=== PATIENT | male | born 1965 | race Caucasian/White ===

== ENCOUNTER 2021-06-02 12:30 | Inpatient (IN) | payer OTHER ==
[~2021-06-02] VITALS: Ht 185.4 cm; Wt 165.1 kg
[2021-06-02 12:50] VITALS: BP 106/76
[2021-06-02 13:10] LABS: BE(vivo) -0.4 mmol/L (-2 to +3); HCO3 23.1 mmol/L (22.0-26.0); PCO2 34.7 mmHg (35.0-45.0); PO2 77.4 mmHg (80.0-100.0); pH 7.441 (7.360-7.450)
[2021-06-02] MEDS ORDERED: NOHOMEMEDICATIONS (13:27)
[2021-06-02 13:47] LABS: ABSOLUTE NEUTROPHILS 3.8 thou/uL (1.4-8.2); BASOPHILS 0.5 % (0.0-2.0); HEMATOCRIT 43.5 % (42.0-52.0); HEMOGLOBIN 14.7 gm/dL (14.0-18.0); LYMPHOCYTES 23.5 % (24.0-44.0); MCH 31.9 pg (26.0-34.0); MCHC 33.8 g/dL (28.0-37.0); MCV 94.3 fL (80.0-100.0); MONOCYTES 4.9 % (1.0-8.0); PLATELET COUNT 174 thou/uL (150-400); POLYS 71.1 % (36.0-66.0); RBC 4.62 mil/uL (4.50-6.00); RDW 13.6 % (10.5-14.5); WBC 5.3 thou/uL (4.0-11.0)
[2021-06-02 14:10] LABS: CALCIUM 7.9 mg/dL (8.5-10.1); CREATININE 1.1 mg/dL (0.7-1.3); POTASSIUM 4.3 mmol/L (3.5-5.1)
[2021-06-02 14:13] LABS: APTT 33.3 Seconds (24.5-32.8); D-DIMER 1.14 ug/mLFEU (0.19-0.50); INR 0.97; PROTIME 10.6 Seconds (10.5-12.1)
[2021-06-02 14:14] LABS: ALBUMIN 2.9 g/dL (3.4-5.0); TOTAL BILIRUBIN 0.3 mg/dL (0.2-1.0); TOTAL PROTEIN 7.4 g/dL (6.4-8.2)
[2021-06-02 15:30] VITALS: BP 137/83
[2021-06-02 15:58] LABS: URINE BILIRUBIN NEGATIVE (Negative); URINE BLOOD TRACE (Negative); URINE CLARITY CLEAR; URINE COLOR YELLOW; URINE GLUCOSE-RANDOM* NEGATIVE (Negative); URINE KETONES TRACE (Negative); URINE LEUKOCYTES-REFLEX NEGATIVE (Negative); URINE NITRITE-REFLEX NEGATIVE (Negative); URINE PROTEIN (DIPSTICK) 2+ (Negative); URINE UROBILINOGEN 0.2 E.U./dl (0.2-1.0)
[2021-06-02 16:15] LABS: SQUAMOUS 0-3 Few /LPF (0-3); URINE RBC 1-2 Rare /HPF (NONE SEEN); URINE WBC-REFLEX 0-5 Rare /HPF (0-5)
[2021-06-02 16:16] LABS: BACTERIA-REFLEX 1-9 Few /HPF (None Seen)
[2021-06-02 17:19] VITALS: BP 114/66
--- NOTE | 2021-06-02 19:55 | NUR ---
Pt received from ED via wheelchair on NC and mask, pt placed on mask at 15L - POX 97%. On 9L NC 94%. RT called to evaluate and administer appropriate level of O2. Pt SOB at rest, particularly when speaking. WILDE. Pt instructed on safety measures, use of call light for assistance, instructed not to get OOB without assistance for fall precautions - pt verbalized understanding. Other VSS, pt afebrile - see flow sheet for documentation. Tele monitor placed on pt - HR NSR 80's. Pt denies CP, palpitations this time. Admission assessment completed with patient providing informtation. Pt appears stable at this time, resting in bed, eating sandwiched. Call light and personal belongings in reach.
[2021-06-02 21:08] LABS: ALBUMIN 3.2 g/dL (3.4-5.0)
[2021-06-02 21:30] VITALS: BP 140/93
--- NOTE | 2021-06-02 22:22 | NUR ---
PT ALERT AND ORIENTED X4. VSS AFEBRILE. TACHYPNEIC ON FM. SAT 92%. LUNGS SOUND DIMINISHED. INSTRUCTED PT ON FALL PRECAUTIONS. REISTRUCTED PROMOTIONAL ADVERTISING ASSISTANT LIGHT , URINAL AT BS. WALKER IN RM SINCE HE USES A CANE AT HOME PRN. BED DOWN CALL LIGHT IN REACH. BED ALARM IS ON. CARE PLAN INITIATED. NO SKIN BREAKDOWN NOTED. ABX STARTED ORDERED.
[2021-06-02 23:23] VITALS: BP 135/83
--- NOTE | 2021-06-03 00:28 | NUR ---
PT ASSESSMENT COMPLETED FOR MN. RR 26-28. SAT WAS 87-88% ON 40% FM. NOTIFIED RT. NOTIFIED DEWER A BÁRBARA. BIPAP PLACED ORDERED. WILL HAVE RT GET ABGS ORDERED. CLARIFIED WITH DEWER PULMONARY CONSULT TO BE CALLED IN AM. PT IS NOW SATTING 96% ON BIPAP. PT STATES HE FEELS LIKE HE IS BREATHING BETTER AND EASIER NOW. IV ABX INFUSING AND VIT C IV. MRSA AND URINE SAMPLE SENT TO LAB REQUESTED BT DR KIRK.
[2021-06-03 03:06] VITALS: BP 92/64
[2021-06-03 04:34] LABS: BE(vivo) 0.9 mmol/L (-2 to +3); HCO3 25.5 mmol/L (22.0-26.0); PCO2 40.5 mmHg (35.0-45.0); PO2 76.8 mmHg (80.0-100.0); pH 7.417 (7.360-7.450); sO2 95.6 % (92.0-98.0)
--- NOTE | 2021-06-03 05:22 | NUR ---
PT RESTING QUIETLY. NO C/O PAIN OR SOA THIS AM ON BIPAP 65%. HE STATED HE IS BREATHING BETTER ON BIPAP. SAT 94% PRESENTLY. VSS. AFEBRILE.
[2021-06-03 05:29] VITALS: BP 119/64
[2021-06-03 06:04] LABS: ABSOLUTE NEUTROPHILS 3.5 thou/uL (1.4-8.2); BASOPHILS 0.2 % (0.0-2.0); HEMATOCRIT 43.1 % (42.0-52.0); HEMOGLOBIN 14.5 gm/dL (14.0-18.0); LYMPHOCYTES 18.8 % (24.0-44.0); MCH 31.9 pg (26.0-34.0); MCHC 33.6 g/dL (28.0-37.0); MCV 94.7 fL (80.0-100.0); MONOCYTES 6.2 % (1.0-8.0); PLATELET COUNT 176 thou/uL (150-400); POLYS 74.8 % (36.0-66.0); RBC 4.55 mil/uL (4.50-6.00); RDW 13.4 % (10.5-14.5); WBC 4.7 thou/uL (4.0-11.0)
[2021-06-03 06:18] LABS: DIRECT BILIRUBIN 0.1 mg/dL (<0.1-0.2); MAGNESIUM 2.4 mg/dL (1.8-2.4); PHOSPHORUS 2.6 mg/dL (2.5-4.9)
[2021-06-03 06:19] LABS: D-DIMER 1.66 ug/mLFEU (0.19-0.50)
[2021-06-03 06:58] LABS: ALBUMIN 2.8 g/dL (3.4-5.0); CALCIUM 8.2 mg/dL (8.5-10.1); CREATININE 0.9 mg/dL (0.7-1.3); POTASSIUM 4.6 mmol/L (3.5-5.1); TOTAL BILIRUBIN 0.3 mg/dL (0.2-1.0); TOTAL PROTEIN 7.5 g/dL (6.4-8.2)
[2021-06-03 07:52] VITALS: BP 115/81
[2021-06-03 11:42] VITALS: BP 124/88
[2021-06-03 15:39] VITALS: BP 117/74
--- NOTE | 2021-06-03 16:57 | NUR ---
RN ASSUMED PT'S CARE AT 0700AM, PT IS A&OX4, PT WAS BIPAP O2 65% AT THIS MORNING WHEN PT WAS SLEEPING, PT IS ON OPTIFLOW O2 50L/MIN, O2 65% NOW, PT'S O2SAT STAYS AT 92-94%, PT STILL HAS SOB WITH ACTIVITIES, PT'S VS ARE STABLE, PT IS CONTINUING IV ABX AND TREAT COVID MEDICATIONS.
[2021-06-03 19:57] VITALS: BP 147/69
--- NOTE | 2021-06-04 01:27 | NUR ---
PT ALERT AND ORIENTED X4. VSS AFEBRILE. SATS WNL ON BIPAP PRESENTLY. C/O PAIN TO KNEES EARLIER THIS SHIFT. MEDICATED WITH HYDROCODONE ORDERED. PT IS NOW SLEEPING QUIETLY. IV RESTARTED LEFT UPPER ARM SINCE THE IV IN LEFT AC INFILTRATED. IV ABX HUNG ORDERED. BED DOWN CALL LIGHT IN REACH. ENCOURAGED PT TO TURN AND TRY AND LIE PRONE RECOMMENDED. PT REFUSED. PT SLEEPING PRESENTLY.
[2021-06-04 04:58] LABS: ABSOLUTE NEUTROPHILS 6.9 thou/uL (1.4-8.2); BASOPHILS 0.1 % (0.0-2.0); HEMATOCRIT 38.6 % (42.0-52.0); HEMOGLOBIN 13.8 gm/dL (14.0-18.0); LYMPHOCYTES 14.4 % (24.0-44.0); MCH 33.2 pg (26.0-34.0); MCHC 35.7 g/dL (28.0-37.0); MCV 93.1 fL (80.0-100.0); PLATELET COUNT 200 thou/uL (150-400); POLYS 81.5 % (36.0-66.0); RBC 4.15 mil/uL (4.50-6.00); RDW 13.2 % (10.5-14.5); WBC 8.5 thou/uL (4.0-11.0)
[2021-06-04 05:16] LABS: D-DIMER 0.85 ug/mLFEU (0.19-0.50)
[2021-06-04 05:27] LABS: DIRECT BILIRUBIN 0.1 mg/dL (<0.1-0.2); MAGNESIUM 2.5 mg/dL (1.8-2.4); PHOSPHORUS 2.8 mg/dL (2.5-4.9)
[2021-06-04 05:30] LABS: ALBUMIN 2.5 g/dL (3.4-5.0); CALCIUM 8.1 mg/dL (8.5-10.1); CREATININE 0.8 mg/dL (0.7-1.3); POTASSIUM 4.2 mmol/L (3.5-5.1); TOTAL BILIRUBIN 0.3 mg/dL (0.2-1.0); TOTAL PROTEIN 6.7 g/dL (6.4-8.2)
[2021-06-04 05:52] VITALS: BP 125/73
--- NOTE | 2021-06-04 07:10 | NUR ---
PT PROGRESSING SLOWLY TOWARDS D/C GOALS. VSS AFEBRILE THIS AM. NO C/O PAIN HIS AM. SAT 94-96% PRESNETLY ON BIPAP..
--- NOTE | 2021-06-04 07:31 | EKG ---
[address] [employer] [place] [address] ELECTROCARDIOGRAM REPORT Name: KEITH LUGO Room #: 364-P ADM IN M.R.#: [id number] Admission: 06/02/21 Attend Phys: Howard Patel MD Discharge: Date of : 67 Report #: [id number] [facility] ED Test Date: 2021-06-02 Test Time: 13:20:41 Pat Name: KEITH LUGO Department: Room: 364 Gender: M Sheet Tailer: SAY HARVEY : 1965 Requested By: Radha Zhu Order Number: [id number] MD: Norberto Chester Measurements Intervals [place] Rate: 109 P: 27 WI: 152 QRS: 60 QRSD: 100 T: 4 QT: 332 QTc: 448 Interpretive Statements Sinus tachycardia Atrial premature complex Low voltage, precordial leads No previous ECG available for comparison Electronically Signed On 06-04-2021 7:31:04 CDT by Norberto Chester [email or web address] <ELECTRONICALLY SIGNED> By: Norberto Chester MD, [facility] 06/04/21 0731 1320 1320 Norberto Chester MD, FACC /EPI
[2021-06-04 07:34] VITALS: BP 124/75
--- NOTE | 2021-06-04 10:16 | NUR ---
Nutrition: Pt assessed due to high risk screen for poor intake, weight loss. Dx. COVID PNA. Bipap last noc. Currently on high tami O2. Pt did not answer phone when RD called. Current weight 352# with pt reported weight of 360#. Extreme class 3 obesity with BMI 46. No PMH. Labs/meds reviewed. PO intake documented as 70-80% of 2 meals yesterday. Will follow po trends for possible supplement need but place as low nutrition risk for now.
[2021-06-04 12:13] LABS: BE(vivo) 0.5 mmol/L (-2 to +3); HCO3 24.5 mmol/L (22.0-26.0); PCO2 37.8 mmHg (35.0-45.0); PO2 64.1 mmHg (80.0-100.0); sO2 93.1 % (92.0-98.0)
[2021-06-04 12:36] VITALS: BP 125/78
[2021-06-04 15:07] LABS: HIV ANTIBODY Non Reactive (Non Reactive)
--- NOTE | 2021-06-04 15:26 | NUR ---
INITIAL ASSESSMENT: SW reviewed chart and spoke with nursing and attending physician. Pt was admitted from home due to COVID pneumonia. Pt placed in Enhanced Isolation. Pt did not have a COVID vaccination. Pt is afebrile and requiring optiflow/bipap support. Pt is on IV abx, IV steorids, IV lasix and COVID meds. PT/OT evals have been ordered. Pt does not have health insurance. [employer] to assist pt with Medicaid application. SW placed call to pt's room. No answer. Per chart, pt is alert/orientated x 4 and lives at home. SW will follow up with pt a later time and assist as needed with discharge planning.
[2021-06-04 16:04] VITALS: BP 125/79
--- NOTE | 2021-06-04 19:28 | NUR ---
RN ASSUMED PT'S CARE AT 0700-1900PM, PT IS A&OX4, PT IS ON OPTIFLOW O2 85-88%, O2 50-55L/MIN, PT'S O2SAT STAYS AT 93-98%, BUT PT STILL HAS SOB WITH ACTIVITIES, PT GETS UP TO BATH ROOM WITH 1-2 STAFF ASSIST. PT IS CONTINUING IV ABX AND TREAT COVID MEDICATIONS.
[2021-06-04 20:39] VITALS: BP 115/79
--- NOTE | 2021-06-04 22:35 | NUR ---
PT AWAKE IN BED WATCHING TV. OPTI SEGUN INTACT. LUNGS COARSE, SOA WITH TALKING AND MOVEMENT. IVF INTACT. OBESE. CONTINUOUS PULSE OX. PT SHOWED NURSE PICTURES OF HIS 4 DOGS. PT PROVIDED HS SNACK. PT CALLS FOR ASSISTANCE.
--- NOTE | 2021-06-05 02:28 | NUR ---
ASSUMED PT CARE AT 0215.
[2021-06-05 04:44] VITALS: BP 125/72
--- NOTE | 2021-06-05 05:18 | NUR ---
PT REMAINS ON BIPAP 70% FIO2. HE DOES DESAT WITH EXERTION OR IF HE TAKES OFF HIS BIPAP. HOWEVER, PT STATES HE FEELS LIKE HIS BREATHING IS IMPROVING SLIGHTLY. C/O CHRONIC PAIN IN RIGHT KNEE. VSS. VOIDS PER URINAL. NO SIGNIFICANT COMPLAINTS AT THIS TIME. WILL MONITOR FURTHER.
[2021-06-05 07:25] LABS: HEMATOCRIT 38.7 % (42.0-52.0); HEMOGLOBIN 12.8 gm/dL (14.0-18.0); MCH 31.2 pg (26.0-34.0); MCV 94.5 fL (80.0-100.0); RBC 4.1 mil/uL (4.50-6.00); RDW 13.3 % (10.5-14.5); WBC 11.9 thou/uL (4.0-11.0)
[2021-06-05 08:00] VITALS: BP 122/59
[2021-06-05 08:06] LABS: ALBUMIN 2.5 g/dL (3.4-5.0); CALCIUM 7.9 mg/dL (8.5-10.1); CREATININE 0.8 mg/dL (0.7-1.3); DIRECT BILIRUBIN 0.1 mg/dL (<0.1-0.2); MAGNESIUM 2.4 mg/dL (1.8-2.4); POTASSIUM 3.9 mmol/L (3.5-5.1); TOTAL BILIRUBIN 0.3 mg/dL (0.2-1.0)
[2021-06-05 08:27] LABS: TOTAL PROTEIN 6.6 g/dL (6.4-8.2)
[2021-06-05 12:01] VITALS: BP 103/55
[2021-06-05 12:42] LABS: BE(vivo) 2.9 mmol/L (-2 to +3); HCO3 26.4 mmol/L (22.0-26.0); PCO2 36.8 mmHg (35.0-45.0); PO2 51.9 mmHg (80.0-100.0); pH 7.473 (7.360-7.450); sO2 89.1 % (92.0-98.0)
--- NOTE | 2021-06-05 14:03 | NUR ---
SW reviewed chart and spoke with nursing and attending physician. Pt remains in Enhanced Isolation due to COVID. Pt is afebrile and requiring optiflow/bipap support. Pt desats with any exertion. PT eval on hold at this time. Pt remains on IV abx, IV steroids, IV lasix and COVID meds. [employer] is working with pt on submitting a Medicaid application. Pt does not have health insurance. SW is following to assist as needed with discharge planning.
[2021-06-05 16:26] VITALS: BP 108/62
[2021-06-05 20:10] VITALS: BP 112/71
--- NOTE | 2021-06-06 04:08 | NUR ---
Pt. on Optiflow at 55L/80% with o2 sat in the low 90's at rest. Pt. occasionally takes off O2 to have a sip of water then desat in the 80's. Encouraged to keep O2 on. He slept fair with BIPAP on ( 30/06 , RR 12, 70% FIO2). Tachypneic and anxious at beginning of shift. Vebalixed he is just upset that is alresdy at home and he is still here at the hospital. Emotional support given. Cont. on enhanced precaution , afebrile. Voiding per urinal.
[2021-06-06 04:19] VITALS: BP 118/68
[2021-06-06 05:18] LABS: HEMATOCRIT 38.9 % (42.0-52.0); MCH 31.6 pg (26.0-34.0); MCHC 33.3 g/dL (28.0-37.0); MCV 94.7 fL (80.0-100.0); RBC 4.11 mil/uL (4.50-6.00); RDW 13.6 % (10.5-14.5); WBC 13.7 thou/uL (4.0-11.0)
[2021-06-06 06:20] LABS: ALBUMIN 2.6 g/dL (3.4-5.0); CALCIUM 8.4 mg/dL (8.5-10.1); CREATININE 0.9 mg/dL (0.7-1.3); DIRECT BILIRUBIN 0.1 mg/dL (<0.1-0.2); MAGNESIUM 2.5 mg/dL (1.8-2.4); PHOSPHORUS 2.8 mg/dL (2.6-4.7); POTASSIUM 4.1 mmol/L (3.5-5.1); TOTAL BILIRUBIN 0.3 mg/dL (0.2-1.0); TOTAL PROTEIN 6.7 g/dL (6.4-8.2)
[2021-06-06 08:20] VITALS: BP 104/84
[2021-06-06 11:35] VITALS: BP 102/65
--- NOTE | 2021-06-06 16:54 | NUR ---
[employer] indicates pt's mo medicaid has been submitted and he will likely qualify for the expansion program. He is on 45% o2/bipap and his dc time frame is uncertain. Will follow.
[2021-06-06 17:09] VITALS: BP 106/67
[2021-06-06 19:33] VITALS: BP 121/80
[2021-06-07 03:44] VITALS: BP 133/92
[2021-06-07 05:09] LABS: HEMATOCRIT 38.1 % (42.0-52.0); HEMOGLOBIN 13.1 gm/dL (14.0-18.0); MCH 32.4 pg (26.0-34.0); MCHC 34.4 g/dL (28.0-37.0); MCV 94.1 fL (80.0-100.0); RBC 4.05 mil/uL (4.50-6.00); RDW 13.2 % (10.5-14.5); WBC 15.4 thou/uL (4.0-11.0)
[2021-06-07 05:22] LABS: ALBUMIN 2.7 g/dL (3.4-5.0); CALCIUM 8.4 mg/dL (8.5-10.1); CREATININE 0.8 mg/dL (0.7-1.3); DIRECT BILIRUBIN 0.1 mg/dL (<0.1-0.2); PHOSPHORUS 3.2 mg/dL (2.5-4.9); POTASSIUM 4.1 mmol/L (3.5-5.1); TOTAL BILIRUBIN 0.3 mg/dL (0.2-1.0); TOTAL PROTEIN 6.6 g/dL (6.4-8.2)
--- NOTE | 2021-06-07 07:30 | NUR ---
Pt. on Optiflow at 50L/70% at beginning of shift then BIPAP at 50% while asleep. He slept fair during the night. Cont. on enhanced precaution , afebrile. Voided per urinal.Less tachypneic and less anxious than the night before.
[2021-06-07 07:50] VITALS: BP 133/81
[2021-06-07 09:39] LABS: T-SPOT.TB Negative
[2021-06-07 11:40] VITALS: BP 123/72
[2021-06-07 15:52] VITALS: BP 118/68
--- NOTE | 2021-06-07 18:16 | NUR ---
ASSUMED PATIENT CARE AT 0700. A/O X4. ON OPTIFLOW 50L/70%. UP STANDBY. SLOWLY TOWARDS POC GOALS.
[2021-06-07 20:03] VITALS: BP 144/74
[2021-06-08] VITALS (7 sets, daily range): BP systolic 113–124; BP diastolic 63–88
--- NOTE | 2021-06-08 06:24 | NUR ---
Pt. on Optiflow at 50L/70% then BIPAP all night at 50% with O2 sat in the mid 90's.Shortness of breath with exertion and gets tachypneic. He slept well during the night. Voiding per urinal and reported had bm yesterday evening. Cont. on enhanced precaution ,afebrile. Making some progress towards care plan goals.
--- NOTE | 2021-06-08 15:37 | NUR ---
MAVIS reviewed chart and spoke with nursing and attending physician. Pt remains in Enhanced Isolation due to COVID. Pt is afebrile and on 2L-6L O2 via NC. Pt is on IV abx, IV steroids and IV lasix. Pt is also on Remdesivir. MAVIS spoke with pt via phone. Introduced role of SW. Pt is alert/orientated x 4 and states he is wanting to discharge home. SW explained that pt will need to be evaluated and determine he is stable to discharge home. SW also discussed need for home O2. Pt verbalized understanding. SW explained that home O2 can be set up through a [employer] company. Pt had questions regarding his Medicaid application. [employer] is working with pt on his Medicaid kalli. Pt states that he has been working on a disability application for several years. Pt does not have a PCP. Pt asked SW to contact his s/o, Loree. MAVIS spoke with Loree via phone. Loree was just discharged from [facility] due to COVID. MAVIS discussed pt's discharge needs. Pt has not seen a physician for a number of years and will use her inhaler if needed. Loree is agreeable with pt coming home and is making arrangements to set up a space for pt in their home. Loree's 89 yr old father lives with them and he has tested negative for COVID. MAVIS discussed home O2 and that pt's meds can be filled at [facility] pharmacy prior to discharge. Options for home O2 companies provided. No preference voiced. MAVIS faxed home O2 referral to [facility] and notified [facility] liaison. Outpt pharmacy is closed on the weekends. MAVIS updated attending physician. [facility] Anticipate discharge home on Friday. Pt will need a repeat rest/exercise oximetry. MAVIS is following to assist as needed with discharge planning.
--- NOTE | 2021-06-08 22:25 | NUR ---
PT RESTING IN BED LISTENING TO MUSIC. O2 PER NC. LUNGS WITH WHEEZES. PT PROVIDED HS SNACK. PT USES URINAL AT BEDSIDE. CANE/WALKER FOR AMBULATION. 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 PT STATED HE IS RECEIVING HELP FROM THE HOSPITAL TO ARRANGE FOR HOME OXYGEN.
[2021-06-09 03:05] VITALS: BP 136/89
[2021-06-09 04:55] LABS: HEMATOCRIT 40.3 % (42.0-52.0); HEMOGLOBIN 13.8 gm/dL (14.0-18.0); MCH 32.5 pg (26.0-34.0); MCHC 34.2 g/dL (28.0-37.0); PLATELET COUNT 339 thou/uL (150-400); RBC 4.25 mil/uL (4.50-6.00); RDW 13.1 % (10.5-14.5); WBC 21.9 thou/uL (4.0-11.0)
[2021-06-09 05:56] LABS: ALBUMIN 2.8 g/dL (3.4-5.0); CALCIUM 8.5 mg/dL (8.5-10.1); CREATININE 0.9 mg/dL (0.7-1.3); POTASSIUM 4.5 mmol/L (3.5-5.1); TOTAL BILIRUBIN 0.4 mg/dL (0.2-1.0); TOTAL PROTEIN 6.6 g/dL (6.4-8.2)
[2021-06-09 07:41] LABS: ABSOLUTE NEUTROPHILS 19.5 thou/uL (1.4-8.2); METAMYELOCYTES 3 %; MYELOCYTES 1 %
[2021-06-09 07:42] LABS: ANISOCYTOSIS SLIGHT
[2021-06-09 08:05] VITALS: BP 145/80
[2021-06-09 11:48] VITALS: BP 130/72
[2021-06-09 13:04] LABS: URINE BILIRUBIN NEGATIVE (Negative); URINE BLOOD NEGATIVE (Negative); URINE CLARITY CLEAR; URINE COLOR YELLOW; URINE GLUCOSE-RANDOM* NEGATIVE (Negative); URINE KETONES NEGATIVE (Negative); URINE LEUKOCYTES-REFLEX NEGATIVE (Negative); URINE NITRITE-REFLEX NEGATIVE (Negative); URINE PROTEIN (DIPSTICK) NEGATIVE (Negative); URINE SPECIFIC GRAVITY 1.015 (1.005-1.035); URINE UROBILINOGEN 0.2 E.U./dl (0.2-1.0)
[2021-06-09 16:04] VITALS: BP 132/87
[2021-06-09 19:12] VITALS: BP 125/81
--- NOTE | 2021-06-09 23:22 | NUR ---
PT RESTING IN BED. WATCHING TV, VERY TALKATIVE AND CHEERFUL. O2 PER NC. LUNGS WHEEZES AND DIMINISHED IN BASES. PALE SKIN TONE, OBESE, EDEMA. PROVIDED HS SNACK. PT VERBALIZING CONCERN THAT [employer] IS ON NOT WORKING ON PERMANENT DISBAILITY FOR HIM ONLY SHORT TERM. PT
[2021-06-10 04:32] VITALS: BP 121/77
[2021-06-10 05:12] LABS: ALBUMIN 2.8 g/dL (3.4-5.0); CALCIUM 8.6 mg/dL (8.5-10.1); CREATININE 0.9 mg/dL (0.7-1.3); POTASSIUM 4.5 mmol/L (3.5-5.1); TOTAL BILIRUBIN 0.5 mg/dL (0.2-1.0)
[2021-06-10 05:17] LABS: ABSOLUTE NEUTROPHILS 14.5 thou/uL (1.4-8.2); BASOPHILS 0.2 % (0.0-2.0); EOSINOPHILS 0.2 % (0.0-3.0); HEMATOCRIT 41.3 % (42.0-52.0); HEMOGLOBIN 14.1 gm/dL (14.0-18.0); LYMPHOCYTES 8.7 % (24.0-44.0); MCH 32.4 pg (26.0-34.0); MCHC 34.2 g/dL (28.0-37.0); MCV 94.8 fL (80.0-100.0); PLATELET COUNT 363 thou/uL (150-400); POLYS 86.9 % (36.0-66.0); RBC 4.36 mil/uL (4.50-6.00); RDW 13.4 % (10.5-14.5); WBC 16.7 thou/uL (4.0-11.0)
[2021-06-10 07:32] VITALS: BP 135/86
[2021-06-10 11:59] VITALS: BP 112/75
[2021-06-10 16:04] VITALS: BP 110/70
--- NOTE | 2021-06-10 18:08 | NUR ---
ASSUMED PATIENT CARE AT 0700. A/O X4. UP AD CLAUDIA IN ROOM. ON 2L/NC. PROGRESSING TOWARDS POC GOALS.
[2021-06-10 19:52] VITALS: BP 151/90
--- NOTE | 2021-06-11 05:51 | NUR ---
PT MAKING PROGRESS TOWARD GOALS. ON O2 AT 2L PER NC OVERNIGHT. STATES HE HAS BEEN ABLE TO AMBULATE TO THE TOILET AND BACK WITH A MILD AMOUNT OF SOA. LUNGS CLEAR UPPER LOBES, DIMINISHED IN BOTH LOWER LOBES.
[2021-06-11 05:52] VITALS: BP 123/85
[2021-06-11 05:58] LABS: HEMATOCRIT 42.4 % (42.0-52.0); HEMOGLOBIN 14.3 gm/dL (14.0-18.0); MCH 31.8 pg (26.0-34.0); MCHC 33.8 g/dL (28.0-37.0); MCV 94.1 fL (80.0-100.0); RBC 4.51 mil/uL (4.50-6.00); RDW 13.8 % (10.5-14.5); WBC 17.5 thou/uL (4.0-11.0)
[2021-06-11 06:35] LABS: ALBUMIN 2.9 g/dL (3.4-5.0); CALCIUM 8.7 mg/dL (8.5-10.1); CREATININE 0.8 mg/dL (0.7-1.3); POTASSIUM 4.1 mmol/L (3.5-5.1); TOTAL BILIRUBIN 0.4 mg/dL (0.2-1.0); TOTAL PROTEIN 6.8 g/dL (6.4-8.2)
[2021-06-11 07:09] VITALS: BP 127/89
[2021-06-11 11:29] VITALS: BP 144/82
--- NOTE | 2021-06-11 12:28 | NUR ---
DISCHARGE NOTE: MAVIS reviewed chart and spoke with nursing and attending physician. Pt is medically stable for discharge home today. Rest/exercise oximetry to be completed today to determine home O2 needs. [facility] has already delivered a portable O2 tank to the hospital. MAVIS updated [facility] liaison. Testing and script to be faxed when available. MAVIS faxed face sheet to [facility] pharmacy. MAVIS spoke with Zainab to notify that case mgmt will vouch for meds, as pt does not have health insurance. MAVIS spoke with pt via phone to provide update. Pt is aware and in agreement with plan. Pt's family will be able to provide transportation home. Contact info for [employer] placed in pt's discharge summary for pt to follow up regarding his Medicaid application. MAVIS explained that [employer], not case mgmt, works on these applications. Pt verbalized understanding. Contact info for [facility] placed in pt's discharge summary. MAVIS is following to finalize discharge.
[2021-06-11] MEDS ORDERED: PROAIR HFA8.5 GM INH (13:42)
[2021-06-11] MEDS ORDERED: PREDNISONE 10 M10 M1 PO (13:42)
[2021-06-11] MEDS ORDERED: OXYGEN MISCELL (14:21)
== END 2021-06-11 15:20 | disposition home health service (06) | DRG 871 ==
LOC: ER 12:30 → EROBS 17:07 → 3W 17:26
PROVIDERS: Emergency Medicine; Hospitalist; Nurse Practitioner Family; Specialist; ADMIT Internal Medicine; ATTEND Internal Medicine
PROC: XW033E5 Introduction of Remdesivir Anti-infective into Peripheral Vein, Percutaneous Approach, New Technology Group 5 (ICD-10-PCS; principal; 2021-06-02)
PROC: 5A0935A Assistance with Respiratory Ventilation, Less than 24 Consecutive Hours, High Flow/Velocity Cannula (ICD-10-PCS; principal; 2021-06-02)
PROC: 5A09357 Assistance with Respiratory Ventilation, Less than 24 Consecutive Hours, Continuous Positive Airway Pressure (ICD-10-PCS; 2021-06-03)
PROC: 5A0935A Assistance with Respiratory Ventilation, Less than 24 Consecutive Hours, High Flow/Velocity Cannula (ICD-10-PCS; 2021-06-03)
PROC: 5A09357 Assistance with Respiratory Ventilation, Less than 24 Consecutive Hours, Continuous Positive Airway Pressure (ICD-10-PCS; 2021-06-04)
PROC: 5A0935A Assistance with Respiratory Ventilation, Less than 24 Consecutive Hours, High Flow/Velocity Cannula (ICD-10-PCS; 2021-06-04)
PROC: 5A09357 Assistance with Respiratory Ventilation, Less than 24 Consecutive Hours, Continuous Positive Airway Pressure (ICD-10-PCS; 2021-06-05)
PROC: 5A0935A Assistance with Respiratory Ventilation, Less than 24 Consecutive Hours, High Flow/Velocity Cannula (ICD-10-PCS; 2021-06-05)
PROC: 5A09357 Assistance with Respiratory Ventilation, Less than 24 Consecutive Hours, Continuous Positive Airway Pressure (ICD-10-PCS; 2021-06-06)
PROC: 5A0935A Assistance with Respiratory Ventilation, Less than 24 Consecutive Hours, High Flow/Velocity Cannula (ICD-10-PCS; 2021-06-06)
PROC: 5A09357 Assistance with Respiratory Ventilation, Less than 24 Consecutive Hours, Continuous Positive Airway Pressure (ICD-10-PCS; 2021-06-07)
DX: A41.89 Other specified sepsis (principal); U07.1 COVID-19; J12.82 Pneumonia due to coronavirus disease 2019; J80 Acute respiratory distress syndrome; Z68.42 Body mass index [BMI] 45.0-49.9, adult; F17.210 Nicotine dependence, cigarettes, uncomplicated; F12.90 Cannabis use, unspecified, uncomplicated; K76.0 Fatty (change of) liver, not elsewhere classified; E66.01 Morbid (severe) obesity due to excess calories; R74.01 Elevation of levels of liver transaminase levels; E78.5 Hyperlipidemia, unspecified; I10 Essential (primary) hypertension; Z79.899 Other long term (current) drug therapy
CPT/HCPCS: 10879